=== PATIENT | female | born 1960 | race Two or more races ===

== ENCOUNTER 2019-04-20 14:01 | Outpatient (CLI) | payer OTHER | END 2019-04-20 14:29 | disposition home or self-care (01) | LOC: RAD 14:01 | DX: R07.89 Other chest pain (principal) ==

== ENCOUNTER 2019-05-01 09:05 | Outpatient (CLI) | payer OTHER | END 2019-05-01 09:07 | disposition home or self-care (01) | LOC: MRI 09:05 | DX: M54.5 Low back pain (principal) | CPT/HCPCS: 72141 ==

== ENCOUNTER → 2019-05-03 | Outpatient (CLI) | payer OTHER | END | disposition home or self-care (01) | LOC: MAMO-SONO 08:15 → SONOGRAMA 08:27 | DX: M25.511 Pain in right shoulder (principal); M25.512 Pain in left shoulder ==